=== PATIENT | female | born 1955 | race Two or more races ===

== ENCOUNTER 2018-12-04 13:45 | Emergency (ER) | payer OTHER ==
[~2018-12-04] VITALS: Ht 165.1 cm; Wt 68.0 kg
[2018-12-04] MEDS ORDERED: LORA-259 PO (13:55)
[2018-12-04 15:06] LABS: BASOPHILS # (AUTO) 0.1 K/uL (0.0-8.0); BASOPHILS % (AUTO) 1.1 % (0.0-2.0); EOSINOPHILS # (AUTO) 0.1 K/uL (0.0-0.7); EOSINOPHILS % (AUTO) 2.7 % (0.0-7.0); HEMATOCRIT 41.2 % (31.2-41.9); HEMOGLOBIN 13.9 g/dL (10.9-14.3); LYMPHOCYTES # (AUTO) 1.5 K/uL (20.0-40.0); LYMPHOCYTES % (AUTO) 28.2 % (20.5-51.5); MEAN CORPUSCULAR HEMOGLOBIN 30.8 uug (24.7-32.8); MEAN CORPUSCULAR HGB CONC 34 g/dL (32.3-35.6); MEAN CORPUSCULAR VOLUME 91.4 fL (75.5-95.3); MONOCYTES # (AUTO) 0.4 K/uL (2.0-10.0); MONOCYTES % (AUTO) 8.2 % (0.0-11.0); NEUTROPHILS # (AUTO) 3.3 K/uL (1.8-8.9); NEUTROPHILS % (AUTO) 59.8 % (38.5-71.5); PLATELET COUNT (AUTO) 212 K/uL (179-408); WHITE BLOOD COUNT (AUTO) 5.5 K/uL (3.8-11.8)
[2018-12-04 15:08] LABS: *BILIRUBIN,URIN NEGATIVE (NEGATIVE); *BLOOD, URINE NEGATIVE (NEGATIVE); *CLARITY,URINE CLEAR (CLEAR); *COLOR,URINE YELLOW (YELLOW); *KETONES,URINE NEGATIVE (NEGATIVE); *UROBILINOGEN,URINE 0.2 E.U./dl (NORMAL); LEUKOCYTE ESTERASE ,URINE NEGATIVE (NEGATIVE); NITRITE, URINE NEGATIVE (NEGATIVE); PH,URINE 5.5 (5.0-8.0); UGLUCOSE NEGATIVE (NEGATIVE)
[2018-12-04 15:09] LABS: BACTERIA,URINE NONE SEEN /HPF (NONE SEEN); RBC,URINE NONE SEEN /HPF (0-3); WBC,URINE 0-3 /HPF (0-3)
[2018-12-04 15:10] LABS: SQUAMOUS EPITHELIAL CELL,UR FEW /HPF (NONE SEEN)
[2018-12-04 15:12] LABS: CREATININE 0.9 mg/dL (0.6-1.3)
[2018-12-04] MEDS ORDERED: ASPIRIN 325 MG TABLET PO ONE (15:15)
[2018-12-04] MEDS ORDERED: NITROGLYCERIN OINT 1 GM PACKET TP ONE ×2 (15:15→15:18)
[2018-12-04] MEDS ORDERED: ASPIRIN 325 MG TABLET ONE (15:18)
[2018-12-04 15:19] VITALS: BP 128/87
[2018-12-04 15:29] LABS: BILIRUBIN,DIRECT 0.1 mg/dL (0.0-0.2); BILIRUBIN,TOTAL 0.2 mg/dL (0.2-1.0); TOTAL PROTEIN, SERUM 7.2 g/dL (6.4-8.2)
--- NOTE | 2018-12-04 16:20 | NUR ---
NITRO PATCH REMOVED FROM [facility] DUE TO LOW BP.
--- NOTE | 2018-12-04 17:00 | NUR ---
KHLOE SHIRLEY AT BEDSIDE FOR PT UPDATE.
--- NOTE | 2018-12-04 17:10 | NUR ---
PT GOING BACK AND FORTH RE TRANSFER TO [place].
--- NOTE | 2018-12-04 17:24 | NUR ---
Patient does not wish to proceed with medical care recommended by Dr. MCLEOD. Patient given information related to possible complications, up to and including , which could occur as a result of leaving the hospital at this time. Patient verbalizes understanding of risks involved due to leaving against medical advice. Patient has signed AMA form.
== END 2018-12-04 17:29 | disposition left against medical advice (07) ==
LOC: ER 13:45
DX: R07.9 Chest pain, unspecified (principal); F17.210 Nicotine dependence, cigarettes, uncomplicated; Z88.5 Allergy status to narcotic agent; Z79.899 Other long term (current) drug therapy
CPT/HCPCS: 36415; 70030-TC; 71045; 84443; 85025; 87040; 87086; 93005; A4663

== ENCOUNTER 2018-12-04 18:14 | Emergency (ER) | payer OTHER ==
[~2018-12-04] VITALS: Ht 165.1 cm; Wt 72.6 kg
[~2018-12-04 18:14] MED LIST: LORA-259 PO
--- NOTE | 2018-12-04 18:50 | NUR ---
PT A/OX4, PRESENTS TO THE ER FOR THE SECOND TIME TODAY CO ANXIETY. SHE WAS PREVIOUSLY D/C AMA APPROXIMATELY 30 MIN AGO. PT REPORTS SHE WANTS TO BE SEEN AGAIN FOR THE SAME COMPLAINT. WHEN PT LEFT THE ER AMA, SHE VERBALIZED UNDERSTANDING OF THE RISKS OF LEAVING AMA. PT DENIES PAIN, C/P, SOB, N/V/D, DIZZINESS, HEADACHE. VSS.
[2018-12-04] MEDS ORDERED: LORAZEPAM 0.5 MG TABLET ONE (18:58)
[2018-12-04] MEDS ORDERED: LORAZEPAM 0.5 MG TABLET PO ONE ×2 (19:00→22:15)
[2018-12-04] MEDS ORDERED: IV NORMAL SALINE 1000 ML BAG IV ONE (19:00)
[2018-12-04] MEDS ORDERED: LORAZEPAM 2 MG/1 ML VIAL IV ONE (19:00)
[2018-12-04 19:11] LABS: BASOPHILS % (AUTO) 0.7 % (0.0-2.0); EOSINOPHILS # (AUTO) 0.2 K/uL (0.0-0.7); EOSINOPHILS % (AUTO) 3.6 % (0.0-7.0); HEMATOCRIT 40.1 % (31.2-41.9); HEMOGLOBIN 13.6 g/dL (10.9-14.3); LYMPHOCYTES # (AUTO) 1.6 K/uL (20.0-40.0); LYMPHOCYTES % (AUTO) 30.4 % (20.5-51.5); MEAN CORPUSCULAR HEMOGLOBIN 30.8 uug (24.7-32.8); MEAN CORPUSCULAR HGB CONC 34 g/dL (32.3-35.6); MONOCYTES # (AUTO) 0.4 K/uL (2.0-10.0); MONOCYTES % (AUTO) 8.3 % (0.0-11.0); PLATELET COUNT (AUTO) 203 K/uL (179-408); RED BLOOD CELL COUNT(AUTO) 4.41 MIL/uL (3.63-4.92); WHITE BLOOD COUNT (AUTO) 5.2 K/uL (3.8-11.8)
[2018-12-04 19:18] LABS: POTASSIUM 3.3 mmol/L (3.5-5.1)
--- NOTE | 2018-12-04 19:18 | NUR ---
SHIFT REPORT GIVEN TO KRYSTAL, ЕКАТЕРИНА CORBIN.
--- NOTE | 2018-12-04 19:30 | NUR ---
Report recieved from Jose L RN, pt is resting on gurny a/o x4, vss, pt denies any pain or discomfort. Waiting to be transferred to [place].
--- NOTE | 2018-12-04 20:00 | NUR ---
Spoke w/ Charo from [place] [facility], info given, state she will have MD from [place] call us. Dr Perez made aware.
--- NOTE | 2018-12-04 21:00 | NUR ---
Call placed to [place] [facility] to check on status, [facility] from [place] should be calling shortly. Pt is restless, requesting to go smoke, informed that she can not go out. Dr Perez made aware, nicotine patch ordered
[2018-12-04] MEDS ORDERED: NICOTINE 21 MG/24HR PATCH TD SCH (22:00)
--- NOTE | 2018-12-04 22:10 | NUR ---
Information for transfer given pt is going to [facility], accepting MD is Dr. Christensen, phone #[phone]. 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
[2018-12-04] MEDS ORDERED: NICOTINE 21 MG/24HR PATCH TD ONE (22:20)
--- NOTE | 2018-12-04 22:20 | NUR ---
Nicoderm CQ 21mg patch obtained from [facility], placed on pt's rt arm.
--- NOTE | 2018-12-04 22:40 | NUR ---
[facility] ambulance here for pt. report given, pt prepared for departure, VS 98.8, 84, 95% on ra, 20, 128/60.
== END 2018-12-04 23:00 | disposition short-term general hospital (02) ==
LOC: ER 18:14
DX: R07.89 Other chest pain (principal); R11.0 Nausea; R53.1 Weakness; R51 Headache; Z88.5 Allergy status to narcotic agent; Z79.899 Other long term (current) drug therapy
CPT/HCPCS: 36415; 70030-TC; 85025; 93005; A4663; J7030

== ENCOUNTER 2024-03-02 09:28 | Emergency (ER) | payer OTHER, MEDICAID ==
[~2024-03-02] VITALS: Ht 165.1 cm; Wt 72.6 kg
[2024-03-02] MEDS: LORAZEPAM 0.5 MG TABLET PO ONE (10:47)
[2024-03-02 11:12] VITALS: BP 139/68; O2SAT 98
== END 2024-03-02 11:18 | disposition home or self-care (01) ==
LOC: ER 09:28
DX: F41.9 Anxiety disorder, unspecified (principal); F32.A Depression, unspecified; R03.0 Elevated blood-pressure reading, without diagnosis of hypertension; E78.5 Hyperlipidemia, unspecified; Z79.899 Other long term (current) drug therapy; Z88.5 Allergy status to narcotic agent
CPT/HCPCS: A4606; A4663